=== PATIENT | female | born 1950 | race Caucasian/White ===

== ENCOUNTER 2022-10-30 10:11 | Day surgery (SDC) | payer MEDICARE, OTHER ==
[2022-10-23 16:39] LABS: BASOPHILS % (AUTO) 0.5 % (0-1); EOSINOPHILS # (AUTO) 0.2 X10'3 (0-0.9); EOSINOPHILS % (AUTO) 2.4 % (0-6); LYMPHOCYTES # (AUTO) 1.2 X10'3 (1.1-4.8); MEAN CORPUSCULAR HEMOGLOBIN 30.2 PG (27.0-31.0); MEAN CORPUSCULAR VOLUME 91.5 FL (78-98); MEAN PLATELET VOLUME 10.4 FL (7.4-10.4); MONOCYTES # (AUTO) 0.6 X10'3 (0-0.9); MONOCYTES % (AUTO) 8.2 % (2-12); NEUTROPHILS # (AUTO) 5.2 X10'3 (1.8-7.7); NEUTROPHILS % (AUTO) 71.9 % (42-75); PRE OP HEMATOCRIT 35.5 % (35.0-45.0); PRE OP HEMOGLOBIN 11.7 g/dL (12.0-16.0); PRE OP PLATELET COUNT 215 X10'3 (140-440); RED BLOOD COUNT 3.89 X10'6 (4.20-5.60); RED CELL DISTRIBUTION WIDTH 14.2 % (11.5-14.5)
[2022-10-23 16:57] LABS: ALBUMIN 3.7 G/DL (3.4-5.0); ALBUMIN/GLOBULIN RATIO 1.1 (1.1-1.5); ALKALINE PHOSPHATASE 95 IU/L (46-116); BLOOD UREA NITROGEN 19 MG/DL (7-18); BUN/CREATININE RATIO 14.8 (10.0-20.0); CALCIUM 9.7 MG/DL (8.5-10.1); CHLORIDE 104 MMOL/L (99-107); CREATININE 1.28 MG/DL (0.40-0.90); PRE OP ALT 20 U/L (30-65); PRE OP ANION GAP 8 (8-16); PRE OP AST 18 U/L (10-37); PRE OP BILIRUB, TOTAL 0.4 MG/DL (0.0-1.0); PRE OP GLUCOSE 118 MG/DL (70-104); PRE OP POTASSIUM 4.7 MMOL/L (3.4-5.1); PRE OP SODIUM 138 MMOL/L (135-145); TOTAL CARBON DIOXIDE 25.9 MMOL/L (24-32); TOTAL PROTEIN 7.1 G/DL (6.4-8.2); eGFR 41 ML/MIN
[2022-10-30] VITALS (34 sets, daily range): BP systolic 152–176; BP diastolic 6–88; PULSE 47–72; RESP 10–17; TEMP 97.7; O2SAT 89–100
[~2022-10-30] VITALS: Ht 162.6 cm; Wt 100.7 kg
[~2022-10-30 10:11] MED LIST: ATOR10TA70 PO; BUPIVAcaine/PF 2.5 mg/ml (0.25%) 30ml vial ONE; FERR-39 PO; FLUO-167 PO; FOLI1TAB27 PO; LEVO137T2 PO; LOSA50TA64 PO; LUTEIN; METF-1203 PO; PANT40TA54 PO; PIOG30TA71 PO; TEMA15CA PO; TRIA10.8 BOTHNARES; VIT B12; VIT D3; clindamycin-Cleocin 900mg/D5W 50 ML IV ONE; famotidine 20mg tablet PO ONE; normal saline 1000ml 500 ML IV SCH
[2022-10-30 10:53] LABS: CLARITY,URINE CLOUDY (Clear); COLOR,URINE YELLOW (Yellow); GLUCOSE, URINE NEGATIVE (Neg); KETONES,URINE NEGATIVE (Neg); LEUKOCYTE ESTERASE ,URINE TRACE (Neg); NITRITES, URINE NEGATIVE (Neg); OCCULT BLOOD,URINE NEGATIVE (Neg); PH,URINE 5.5 (4.8-8.0); PROTEIN,URINE NEGATIVE (Neg); UROBILINOGEN,URINE 0.2 E.U/dL (0.2-1.0)
[2022-10-30 11:05] LABS: UA COLLECTION TYPE CLN CATCH MIDSTREAM
[2022-10-30 11:06] LABS: MUCUS STRANDS MANY /LPF (Neg); SQUAMOUS EPITHELIAL CELL,UR MODERATE /LPF (FEW)
[2022-10-30 11:07] LABS: BACTERIA,URINE 2+ /HPF (Neg)
[2022-10-30 11:08] LABS: RBC,URINE 0-2 /HPF (0-2); TRANSITIONAL EPI CELLS,URINE FEW /HPF
[2022-10-30] MEDS ORDERED: morphine 2 MG/ML inj. syringe IV PRN ×2 (11:45→13:20)
[2022-10-30] MEDS ORDERED: meperidine/PF 25mg/ml syringe IV PRN ×6 (11:45→13:20)
[2022-10-30] MEDS ORDERED: morphine 4 MG/ML inj SYRINge IV PRN ×2 (11:45→13:20)
[2022-10-30] MEDS ORDERED: ondansetron/PF 4mg/2ml inj IV PRN ×2 (11:45→13:20)
[2022-10-30] MEDS ORDERED: proCHLORperazine 10 MG/2 ml inj IV PRN ×2 (11:45→13:20)
[2022-10-30] MEDS ORDERED: ringers solution, lacted 1,000 ML IV SCH ×2 (11:45→13:20)
[2022-10-30] MEDS ORDERED: BUPIVAcaine/PF 2.5 mg/ml (0.25%) 30ml vial ONE (12:53)
[2022-10-30] MEDS ORDERED: rocuronium 10mg/ml inj IV ONE (13:07)
[2022-10-30] MEDS ORDERED: propofol inj 20 ML IV ONE (13:07)
[2022-10-30] MEDS ORDERED: fentaNYL/PF 50MCG/1 ML 2ML syringe ONE (13:07)
[2022-10-30] MEDS ORDERED: midazolam 1 mg/ML 2ml injection ONE (13:07)
[2022-10-30] MEDS ORDERED: sevoflurane 250ml liquid IH ONE (13:18)
[2022-10-30] MEDS ORDERED: dexamethasone sod phosphate 4mg/ml inj. ONE (13:58)
[2022-10-30] MEDS ORDERED: ondansetron/PF 4mg/2ml inj ONE (13:58)
[2022-10-30] MEDS ORDERED: BUPIVAcaine/PF 2.5 mg/ml (0.25%) 30ml vial IJ ONE (14:00)
[2022-10-30] MEDS ORDERED: acetaminophen 1,000mg/100ml IV 100 ML IV ONE (14:20)
[2022-10-30] MEDS ORDERED: neostigmine methylsulfate 1 MG/ML 10ml vial ONE (14:22)
[2022-10-30] MEDS ORDERED: glycopyrrolate 0.2mg/ml inj ONE (14:22)
--- NOTE | 2022-10-30 14:50 | NUR ---
Received from OR via [facility], accompanied by Anesthesiologist DR KILGORE and report given by Anesthesiologist. PT IS GROGGY BUT RESPONDS TO VERBAL STIMULI AND FOLLOWS COMMANDS. PT PLACED ON BEDSIDE MONITOR, VSS. PT IS IN SR WITH RATE IN LOW 70'S. PT IS RECEIVING 8L O2 TO MASK AND TOLERATING WELL WITH O2 SAT > 95%, WILL TITRATE DOWN PT TOLERATES. PT HAS 20G PIV TO LEFT HAND WITH LR INFUSING ORDERED. PT HAS LAPSITES WITH DERMABOND INTACT, ABD BINDER IN PLACE. PT DENIES PAIN AT THIS TIME. WILL CONTINUE TO ASSESS
[2022-10-30] MEDS ORDERED: traMADol 50MG tablet PO ONE ×2 (15:40→19:55)
[2022-10-30] MEDS ORDERED: ipratropium/albuterol 3ml nebule NEB ONE (19:15)
--- NOTE | 2022-10-30 19:45 | NUR ---
PT O2 SAT DECREASE WHEN SLEEPING, DOWN TO 88%. PT WAKES EASILY AND USES IS AND O2 SATS INCREASE TO HIGH 90'S EASILY AFTER USE. PT MAINTAINS IN MID 90'S THEN DESATS ONLY WHILE SLEEPING. ANESTHESIA IS AWARE AND HAS CLEARED PT TO GO HOME. PT STATES SHE WILL SLEEP ON THE COUCH IN A MORE UP-RIGHT POSITION AND THEY DO HAVE A PULSE OXIMETER AT HOME TO MONITOR. BREATHING TREATMENT ORDERED. PT AND EDUCATED ON IMPORTANCE OF MONITORING. PT MAINTAINING O2 SAT O2 SAT >93%.
--- NOTE | 2022-10-30 20:36 | NUR ---
ALL DISCHARGE CRITERIA HAS BEEN MET. VSS, PT HAS MAINTAINED O2 SAT >94%, PAIN AT TOLERABLE LEVEL. ABLE TO SAFELY AMBULATE AND TRANSFER SELF. IV TAKEN OUT WITHOUT ANY COMPLICATIONS. ALL DISCHARGE INSTRUCTIONS COVERED WITH PATIENT AND ALL QUESTIONS ANSWERED. PATIENT TAKEN OUT VIA WHEELCHAIR TO PERSONAL VEHICLE WHERE PAM DROVE PATIENT HOME.
== END 2022-10-30 20:28 | disposition home or self-care (01) ==
LOC: PAS 10:11
PROVIDERS: ATTEND Surgery
DX: K43.9 Ventral hernia without obstruction or gangrene (principal); E03.9 Hypothyroidism, unspecified; E66.9 Obesity, unspecified; Z68.38 Body mass index [BMI] 38.0-38.9, adult; K21.9 Gastro-esophageal reflux disease without esophagitis; M81.0 Age-related osteoporosis without current pathological fracture; E87.5 Hyperkalemia; E11.22 Type 2 diabetes mellitus with diabetic chronic kidney disease; I12.9 Hypertensive chronic kidney disease with stage 1 through stage 4 chronic kidney disease, or unspecified chronic kidney disease; N18.30 Chronic kidney disease, stage 3 unspecified; F32.A Depression, unspecified; G43.909 Migraine, unspecified, not intractable, without status migrainosus; M19.90 Unspecified osteoarthritis, unspecified site; F41.9 Anxiety disorder, unspecified; Z85.038 Personal history of other malignant neoplasm of large intestine; Z79.899 Other long term (current) drug therapy; Z79.84 Long term (current) use of oral hypoglycemic drugs; Z88.0 Allergy status to penicillin; Z90.710 Acquired absence of both cervix and uterus; Z90.49 Acquired absence of other specified parts of digestive tract; Z98.890 Other specified postprocedural states; Z83.3 Family history of diabetes mellitus
CPT/HCPCS: 36415; 49593; 80053; 81001; 82948; 85025; 87088; 94640; 94760; C1713; C1781; J0131; J1100; J2250; J2405; J2704; J2710; J3010; J3490; J7030; J7120; Z7506; Z7508; Z7512; A4615; A4618; A7000

== ENCOUNTER 2023-10-01 13:20 | Day surgery (SDC) | payer OTHER ==
[~2023-10-01] VITALS: Ht 162.6 cm; Wt 95.9 kg
[~2023-10-01 13:20] MED LIST changes: -BUPIVAcaine/PF 2.5 mg/ml (0.25%) 30ml vial ONE; -clindamycin-Cleocin 900mg/D5W 50 ML IV ONE; -famotidine 20mg tablet PO ONE; -normal saline 1000ml 500 ML IV SCH
[2023-10-01 13:51] VITALS: BP 147/75; PULSE 87; RESP 18
[2023-10-01] MEDS ORDERED: CYCL1DRO RIGHTEYE (13:55)
[2023-10-01] MEDS ORDERED: CYCL1DRO LEFTEYE (13:55)
[2023-10-01] MEDS ORDERED: fentaNYL/PF 50MCG/1 ML 2ML syringe ONE (14:11)
[2023-10-01] MEDS ORDERED: MIDAZolam 1 MG/ML 5ML VIAL ONE (14:12)
[2023-10-01] MEDS ORDERED: diphenhydrAMINE 50 mg/ml inj ONE (14:12)
[2023-10-01 14:38] VITALS: BP 153/76; PULSE 90; RESP 12; O2SAT 94
[2023-10-01 14:48] VITALS: BP 132/71; PULSE 71; RESP 17; O2SAT 93
[2023-10-01 14:58] VITALS: BP 137/76; PULSE 65; RESP 17; O2SAT 92
[2023-10-01 15:08] VITALS: BP 142/74; PULSE 63; RESP 14; O2SAT 92
== END 2023-10-01 15:15 | disposition home or self-care (01) ==
LOC: GI LAB 13:20
PROVIDERS: ATTEND Internal Medicine Gastroenterology
DX: Z12.11 Encounter for screening for malignant neoplasm of colon (principal); Z86.010 Personal history of colon polyps
CPT/HCPCS: 45378; J1200; J2250; J3010; J7030; Z7512; 99152; A4620

== ENCOUNTER 2023-10-15 12:23 | Day surgery (SDC) | payer OTHER ==
[2023-10-09 11:37] LABS: BASOPHILS # (AUTO) 0.1 X10'3 (0-0.2); EOSINOPHILS # (AUTO) 0.1 X10'3 (0-0.9); EOSINOPHILS % (AUTO) 1.7 % (0-6); LYMPHOCYTES # (AUTO) 1.3 X10'3 (1.1-4.8); LYMPHOCYTES % (AUTO) 18.8 % (21-51); MEAN CORPUSCULAR HEMOGLOBIN 30.1 PG (27.0-31.0); MEAN CORPUSCULAR VOLUME 91.1 FL (78-98); MEAN PLATELET VOLUME 9.7 FL (7.4-10.4); MONOCYTES # (AUTO) 0.6 X10'3 (0-0.9); NEUTROPHILS # (AUTO) 4.9 X10'3 (1.8-7.7); NEUTROPHILS % (AUTO) 69.5 % (42-75); PRE OP HEMATOCRIT 34.9 % (35.0-45.0); PRE OP HEMOGLOBIN 11.5 g/dL (12.0-16.0); PRE OP PLATELET COUNT 211 X10'3 (140-440); PRE OP WHITE BLOOD COUNT 7.1 10'3 (4.8-10.8); RED BLOOD COUNT 3.83 X10'6 (4.20-5.60); RED CELL DISTRIBUTION WIDTH 14.8 % (11.5-14.5)
[2023-10-09 11:47] LABS: ALBUMIN 3.5 G/DL (3.4-5.0); ALBUMIN/GLOBULIN RATIO 0.9 (1.1-1.5); ALKALINE PHOSPHATASE 73 IU/L (46-116); BLOOD UREA NITROGEN 29 MG/DL (7-18); CALCIUM 9.8 MG/DL (8.5-10.1); CHLORIDE 103 MMOL/L (99-107); CREATININE 1.16 MG/DL (0.40-0.90); PRE OP ALT 25 U/L (30-65); PRE OP ANION GAP 10 (8-16); PRE OP AST 18 U/L (10-37); PRE OP BILIRUB, TOTAL 0.4 MG/DL (0.0-1.0); PRE OP GLUCOSE 105 MG/DL (70-104); PRE OP POTASSIUM 4.4 MMOL/L (3.4-5.1); PRE OP SODIUM 138 MMOL/L (135-145); TOTAL CARBON DIOXIDE 24.7 MMOL/L (24-32); TOTAL PROTEIN 7.6 G/DL (6.4-8.2); eGFR 46 ML/MIN
[~2023-10-15] VITALS: Ht 162.6 cm; Wt 97.0 kg
[2023-10-15] VITALS (10 sets, daily range): BP systolic 125–148; BP diastolic 42–98; PULSE 49–73; RESP 12–18; TEMP 97.6; O2SAT 93–98
[~2023-10-15 12:23] MED LIST changes: +CYCL1DRO LEFTEYE; +CYCL1DRO RIGHTEYE; +famotidine 20mg tablet PO ONE; +ringers solution, lacted 1,000 ML IV SCH
[2023-10-15] MEDS ORDERED: midazolam 1 mg/ML 2ml injection ONE (14:12)
[2023-10-15] MEDS ORDERED: fentaNYL/PF 50MCG/1 ML 2ML syringe ONE (14:12)
[2023-10-15] MEDS ORDERED: propofol inj 20 ML IV ONE (14:47)
[2023-10-15] MEDS ORDERED: LIDOcaine 2% (20mg/ml) 5ml vial ONE (14:47)
== END 2023-10-15 15:42 | disposition home or self-care (01) ==
LOC: PRE-OP 12:23
PROVIDERS: ATTEND Internal Medicine Gastroenterology
DX: Z12.11 Encounter for screening for malignant neoplasm of colon (principal); I12.9 Hypertensive chronic kidney disease with stage 1 through stage 4 chronic kidney disease, or unspecified chronic kidney disease; E11.22 Type 2 diabetes mellitus with diabetic chronic kidney disease; N18.30 Chronic kidney disease, stage 3 unspecified; F41.9 Anxiety disorder, unspecified; F32.A Depression, unspecified; G43.909 Migraine, unspecified, not intractable, without status migrainosus; M19.90 Unspecified osteoarthritis, unspecified site; Z85.038 Personal history of other malignant neoplasm of large intestine; Z86.010 Personal history of colon polyps; Z79.899 Other long term (current) drug therapy; Z90.49 Acquired absence of other specified parts of digestive tract; Z90.710 Acquired absence of both cervix and uterus; Z98.890 Other specified postprocedural states; Z88.0 Allergy status to penicillin
CPT/HCPCS: 36415; 45378; 80053; 82948; 85025; 93005; J2250; J2704; J3010; J3490; J7120; Z7506; Z7512; A4618